=== PATIENT | female | born 1990 | race Caucasian/White ===

== ENCOUNTER 2021-08-31 07:53 | Day surgery (SDC) | payer BC ==
[2021-08-25 15:51] VITALS: BMI 23.3
[2021-08-31] MEDS ORDERED: PROPOFOL 20 ML ONE (08:31)
[2021-08-31] MEDS ORDERED: MIDAZOLAM HCL 2 MG/2 ML SINGLE DOSE VIAL ONE (08:31)
[2021-08-31] MEDS ORDERED: oxyCODONE HCL 5 MG TABLET PO PRN ×2 (08:34)
[2021-08-31] MEDS ORDERED: ONDANSETRON 4 MG/2 ML VIAL IVPUSH PRN (08:34)
[2021-08-31] MEDS ORDERED: PROMETHAZINE HCL 25 MG/1 ML VIAL IVPUSH PRN (08:34)
[2021-08-31] MEDS ORDERED: LACTATED RINGERS SOLUTION 1,000 ML IV SCH (08:45)
[2021-08-31] MEDS ORDERED: BACITRACIN 15 GM TUBE TOPICAL OINTMENT ONE (09:02)
[2021-08-31 09:33] VITALS: TEMP 97.8
[2021-08-31 10:22] VITALS: BP 101/66; PULSE 66
== END 2021-08-31 10:20 | disposition home or self-care (01) ==
LOC: FASU 07:53
PROVIDERS: ATTEND Orthopaedic Surgery Hand Surgery
PROC: 0JBK0ZZ Excision of Left Hand Subcutaneous Tissue and Fascia, Open Approach (ICD-10-PCS; principal; 2021-08-31 09:01)
DX: D21.12 Benign neoplasm of connective and other soft tissue of left upper limb, including shoulder (principal)
CPT/HCPCS: 84703